=== PATIENT | male | born 1960 | race Caucasian/White ===

== ENCOUNTER 2016-12-31 12:10 | Emergency (ER) | payer OTHER ==
[~2016-12-31] VITALS: Ht 167.6 cm; Wt 46.3 kg
[~2016-12-31 12:10] MED LIST: ANAPROX DS550 MG PO; ASPIRIN ADULT L81 M1 PO; ASPIRIN325 MG PO; BACTRIM DS 8001 TA1 PO; BENTYL10 MG PO; CAPOTEN50 MG PO; CAPTOPRIL50 MG PO; CARDURA1 MG PO; CARDURA4 MG PO; CATAFLAM50 MG PO; CHOLESTEROL PILL; CIPROFLOXACIN500 MG PO; CLEOCIN150 MG PO; COMPLETE MULTI1 EAC1 PO; DAYPRO600 M1 PO; DICLOFENAC POTA50 MG PO; FISH OIL CONC1000 M1 PO; FLEXERIL5 MG PO; FLOMAX0.4 MG PO; GLYCERIN SUPPOS1 SUP RC; HYDR25T PO; HYDROCHLOROTHIA25 MG PO; HYDROCODONE BIT1 T11 PO; IBU800 M1 PO; K-Dur 20MEQ20 MEQ PO; KEFLEX500 MG PO; KLOR-CON M2020 MEQ PO; NEURONTIN400 MG PO; PREDNICOT20 MG PO; SEPTRA DS 800 M1 TAB PO; TOBRADEX 0.1%-0.5 ML OPH; TRAMADOL HCL50 MG PO; ULTRAM50 MG PO; VIBRAMYCIN100 MG PO; VICODIN 5/500 505 MG PO; VITAMIN C500 M4 PO; VITAMIN D31000 IU PO; ZYLOPRIM100 MG PO
[2016-12-31] MEDS ORDERED: CIPROFLOXACIN500 M4 PO (12:28)
[2016-12-31] MEDS ORDERED: CEPHALEXIN500 M1 PO (13:55)
[2016-12-31] MEDS ORDERED: NAPROSYN500 MG PO (14:02)
== END 2016-12-31 14:05 | disposition home or self-care (01) ==
LOC: ED 12:10
DX: S90.32XA Contusion of left foot, initial encounter (principal); L03.116 Cellulitis of left lower limb; Z90.49 Acquired absence of other specified parts of digestive tract; X58.XXXA Exposure to other specified factors, initial encounter; Y93.89 Activity, other specified; Y92.9 Unspecified place or not applicable; Y99.9 Unspecified external cause status

== ENCOUNTER → 2017-02-06 | Outpatient (CLI) | payer OTHER ==
[~2017-02-06] MED LIST changes: +CEPHALEXIN500 M1 PO; +CIPROFLOXACIN500 M4 PO; +NAPROSYN500 MG PO
== END ==
LOC: RAD 16:28
DX: R10.32 Left lower quadrant pain (principal); Z90.89 Acquired absence of other organs

== ENCOUNTER → 2017-05-19 | Outpatient (CLI) | payer OTHER | END | disposition home or self-care (01) | LOC: LAB 15:10 | DX: E87.6 Hypokalemia (principal); R10.30 Lower abdominal pain, unspecified; M79.609 Pain in unspecified limb ==

== ENCOUNTER → 2017-10-23 | Outpatient (CLI) | payer OTHER ==
[2017-10-23 13:04] LABS: ALBUMIN 3.8 gm/dl (3.1-4.5); BILIRUBIN, DIRECT 0.2 mg/dL (0.0-0.2); TOTAL PROTEIN 7.8 gm/dL (6.4-8.2)
[2017-10-24 08:11] LABS: ALPHA-1-ANTITRYPSIN, SERUM 143 mg/dL (90-200); HEPATITIS B SURFACE AG Negative (Negative); HEPATITIS C VIRUS ANTIBODY <0.1 s/co (0.0-0.9)
[2017-10-24 13:08] LABS: ANTI-SMOOTH MUSCLE ANTIBODY 4 Units (0-19)
[2017-10-24 15:06] LABS: EPSTEIN-BARR VCA IGG AB >600.0 U/mL (0.0-17.9)
== END | disposition home or self-care (01) ==
LOC: LAB 11:36
PROVIDERS: Nurse Practitioner Adult Health
DX: R97.20 Elevated prostate specific antigen [PSA] (principal); R74.0 Nonspecific elevation of levels of transaminase and lactic acid dehydrogenase [LDH]

== ENCOUNTER → 2017-10-26 | Outpatient (CLI) | payer OTHER | END | disposition home or self-care (01) | LOC: US 00:44 | DX: K76.0 Fatty (change of) liver, not elsewhere classified (principal); R74.0 Nonspecific elevation of levels of transaminase and lactic acid dehydrogenase [LDH] ==

== ENCOUNTER 2017-11-18 22:48 | Emergency (ER) | payer OTHER ==
[~2017-11-18] VITALS: Ht 170.1 cm; Wt 102.1 kg
[~2017-11-18 22:48] MED LIST changes: +FISH OIL + D31 EACH PO; -FISH OIL CONC1000 M1 PO
[2017-11-18] MEDS ORDERED: ZOCOR20 MG PO (23:21)
[2017-11-18] MEDS ORDERED: VITAMIN D32000 UNI1 PO (23:21)
[2017-11-18] MEDS ORDERED: COL-RITE100 M1 PO (23:23)
[2017-11-18] MEDS ORDERED: DOXYCYCLINE100 MG PO (23:24)
[2017-11-18] MEDS ORDERED: B12,B-12,B 12500 MC1 PO (23:26)
[2017-11-18] MEDS ORDERED: VITAMIN A8000 UNIT PO (23:27)
[2017-11-18] MEDS ORDERED: MILK THISTLE175 M1 PO (23:28)
[2017-11-18] MEDS ORDERED: HAIR, SKIN AND1 EACH PO (23:29)
[2017-11-18 23:36] LABS: MEAN CELL VOLUME 84.1 fl (80.0-94.0); MEAN CORPUSCULAR HGB 32.5 pg (27.0-31.0); MEAN PLATELET VOLUME 10.9 fl (9.6-12.3); PLATELET COUNT AUTOMATED 99 10*3/uL (130-400); RED BLOOD COUNT 5.23 10*6/uL (4.50-5.90); RED CELL DISTRI WIDTH 13.8 % (0-14.5); WHITE BLOOD COUNT 6.9 10*3/uL (4.8-10.8)
[2017-11-18 23:37] LABS: MEAN CORPUSCULAR HGB CONC 38.6 g/dl (33.0-37.0)
[2017-11-18 23:39] LABS: ALBUMIN 3.5 gm/dl (3.1-4.5); ALKALINE PHOSPHATASE 77 U/L (45-117); BUN 13 mg/dl (7-24); CHLORIDE 103 mmol/L (98-107); CREATININE 0.92 mg/dL (0.70-1.30); LIPASE 232 U/L (73-393); POTASSIUM 3.2 mmol/L (3.5-5.1); SGOT/AST 45 IU/L (3-35); SGPT/ALT 61 U/L (12-78); SODIUM 140 mmol/L (136-145); TOTAL PROTEIN 7.3 gm/dL (6.4-8.2)
[2017-11-18 23:55] LABS: BASOPHILS 1 % (0-1); PLATELET SUFFICIENCY LOW (NORMAL); TOTAL CELLS COUNTED 100 #CELLS
[2017-11-19 00:09] LABS: BILIRUBIN NEGATIVE (NEGATIVE); BLOOD 2+ (NEGATIVE); CLARITY CLEAR (CLEAR); COLOR YELLOW (YELLOW); GLUCOSE NEGATIVE (NEGATIVE); KETONE TRACE (NEGATIVE); LEUKO ESTERASE NEGATIVE (NEGATIVE); NITRITE NEGATIVE (NEGATIVE); PH 5.5 (5.0-9.0); UROBILINOGEN 0.2 E.U./dl (0.2-1.0)
[2017-11-19 00:10] LABS: EPITHELIAL CELLS 0-5
[2017-11-19 00:11] LABS: RBC 16-20 rbc/hpf (0-2); WBC 0-2 wbc/hpf (0-5)
[2017-11-19] MEDS ORDERED: ATARAX,VISTARIL50 MG PO (00:18)
== END 2017-11-19 01:33 | disposition home or self-care (01) ==
LOC: ED 22:48
PROVIDERS: Physician Assistant
DX: R10.11 Right upper quadrant pain (principal); R31.9 Hematuria, unspecified; F10.10 Alcohol abuse, uncomplicated; Z79.899 Other long term (current) drug therapy

== ENCOUNTER → 2018-01-25 | Outpatient (CLI) | payer OTHER ==
[~2018-01-25] MED LIST changes: +ATARAX,VISTARIL50 MG PO; +B12,B-12,B 12500 MC1 PO; +COL-RITE100 M1 PO; +DOXYCYCLINE100 MG PO; +HAIR, SKIN AND1 EACH PO; +MILK THISTLE175 M1 PO; +VITAMIN A8000 UNIT PO; +VITAMIN D32000 UNI1 PO; +ZOCOR20 MG PO
[2018-01-25 14:09] LABS: ACT PARTIAL THROMBO TIME 25.3 SECONDS (20.8-31.5); INTERNATIONAL NORM RATIO 1.1 (2.0-3.5)
== END | disposition home or self-care (01) ==
LOC: LAB 13:04
PROVIDERS: Anesthesiology Pain Medicine
DX: Z51.81 Encounter for therapeutic drug level monitoring (principal); Z79.899 Other long term (current) drug therapy

== ENCOUNTER → 2018-03-10 | Outpatient (CLI) | payer OTHER ==
[2018-03-10 09:54] LABS: BUN 14 mg/dl (7-24); CHLORIDE 106 mmol/L (98-107); CREATININE 1.02 mg/dL (0.70-1.30); POTASSIUM 3.1 mmol/L (3.5-5.1); SODIUM 140 mmol/L (136-145)
[2018-03-10 10:09] LABS: BASO % 0.5 % (0.0-1.0); EOS # 0.2 10*3/uL (0.0-0.4); EOS % 2.7 % (1.0-4.0); HEMATOCRIT 45.7 % (42.0-52.0); HEMOGLOBIN 16.9 g/dl (14.0-18.0); LYMPH # 1.5 10*3/uL (1.3-4.4); LYMPH % 26.3 % (27.0-41.0); MEAN CELL VOLUME 86.2 fl (80.0-94.0); MEAN CORPUSCULAR HGB 31.9 pg (27.0-31.0); MEAN PLATELET VOLUME 11.1 fl (9.6-12.3); MONO # 0.7 10*3/uL (0.1-1.0); MONO % 11.7 % (3.0-9.0); NEUT # 3.3 10*3/uL (2.3-7.9); NEUT % 58.6 % (47.0-73.0); PLATELET COUNT AUTOMATED 119 10*3/uL (130-400); RED CELL DISTRI WIDTH 14.2 % (0-14.5); WHITE BLOOD COUNT 5.6 10*3/uL (4.8-10.8)
== END | disposition home or self-care (01) ==
LOC: LAB 09:14
PROVIDERS: Orthopaedic Surgery
DX: S46.211A Strain of muscle, fascia and tendon of other parts of biceps, right arm, initial encounter (principal); R94.31 Abnormal electrocardiogram [ECG] [EKG]; X58.XXXA Exposure to other specified factors, initial encounter; Y93.89 Activity, other specified; Y92.89 Other specified places as the place of occurrence of the external cause; Y99.8 Other external cause status

== ENCOUNTER 2018-07-11 05:14 | Emergency (ER) | payer OTHER ==
[~2018-07-11] VITALS: Ht 170.1 cm; Wt 102.1 kg
--- NOTE | ~2018-07-11 | EKG ---
[place], [place] ELECTROCARDIOGRAM REPORT NAME: ESTELLA CENTENO UNIT #: [id number] ROOM: DOCTOR: EPIPHANY DRAFT REPORT BIRTHDATE: [birth year] [facility] Test Date: 2018-07-11 Test Time: 06:38:59 Pat Name: ESTELLA CENTENO Department: Room: Gender: Cafeteria Supervisor: AFIA : 1960 Requested By: ALLEN ADAMS Order Number: [id number] Reading MD: Ariel Cedeno MD Measurements Intervals [place] Rate: 65 P: 5 DE: 162 QRS: -4 QRSD: 88 T: 9 QT: 430 QTc: 448 Interpretive Statements Sinus rhythm Abnormal R-wave progression, early transition Electronically Signed On 07-12-2018 8:23:54 PDT by Ariel Cedeno MD CM:EKGRPT:ELECTROCARDIOGRAM REPORT [id number] ALLEN PINEDA DRAFT REPORT ALLEN ADAMS DO
[2018-07-11] MEDS ORDERED: DOXYCYCLINE100 M3 PO (05:36)
[2018-07-11] MEDS ORDERED: CYCLOBENZAPRINE10 MG PO (06:59)
== END 2018-07-11 07:03 | disposition home or self-care (01) ==
LOC: ED 05:14
DX: S29.012A Strain of muscle and tendon of back wall of thorax, initial encounter (principal); M79.601 Pain in right arm; M79.602 Pain in left arm; Z79.899 Other long term (current) drug therapy; Z79.2 Long term (current) use of antibiotics; X58.XXXA Exposure to other specified factors, initial encounter; Y93.89 Activity, other specified; Y92.89 Other specified places as the place of occurrence of the external cause; Y99.8 Other external cause status

== ENCOUNTER → 2018-07-13 | Outpatient (CLI) | payer OTHER ==
[~2018-07-13] MED LIST changes: +CYCLOBENZAPRINE10 MG PO; +DOXYCYCLINE100 M3 PO
== END | disposition home or self-care (01) ==
LOC: MRI 10:37
DX: M48.062 Spinal stenosis, lumbar region with neurogenic claudication (principal); M51.26 Other intervertebral disc displacement, lumbar region; M47.896 Other spondylosis, lumbar region; M54.16 Radiculopathy, lumbar region; M54.12 Radiculopathy, cervical region; K70.30 Alcoholic cirrhosis of liver without ascites

== ENCOUNTER → 2018-07-24 | Outpatient (CLI) | payer OTHER | END | disposition home or self-care (01) | LOC: RAD 10:19 | DX: M50.322 Other cervical disc degeneration at C5-C6 level (principal) ==

== ENCOUNTER → 2018-10-19 | Outpatient (CLI) | payer OTHER | END | disposition home or self-care (01) | LOC: LAB 14:54 | DX: N40.1 Benign prostatic hyperplasia with lower urinary tract symptoms (principal) ==

== ENCOUNTER 2019-11-11 16:50 | Emergency (ER) | payer OTHER ==
[~2019-11-11] VITALS: Ht 170.1 cm; Wt 110.2 kg
== END 2019-11-11 20:36 | disposition home or self-care (01) ==
LOC: ED 16:50
DX: M25.511 Pain in right shoulder (principal); Z79.899 Other long term (current) drug therapy; Z79.2 Long term (current) use of antibiotics; W01.0XXA Fall on same level from slipping, tripping and stumbling without subsequent striking against object, initial encounter; Y93.89 Activity, other specified; Y92.89 Other specified places as the place of occurrence of the external cause; Y99.8 Other external cause status

== ENCOUNTER 2020-09-06 16:52 | Emergency (ER) | payer OTHER ==
[~2020-09-06] VITALS: Ht 177.8 cm; Wt 104.3 kg
[2020-09-06] MEDS ORDERED: PREDNISONE10 MG PO (19:37)
[2020-09-06] MEDS ORDERED: ROBAXIN-750750 MG PO (19:37)
== END 2020-09-06 19:50 | disposition home or self-care (01) ==
LOC: ED 16:52
DX: M54.12 Radiculopathy, cervical region (principal); Z79.899 Other long term (current) drug therapy

== ENCOUNTER 2020-10-22 18:23 | Emergency (ER) | payer OTHER ==
[~2020-10-22] VITALS: Ht 167.6 cm; Wt 106.6 kg
[~2020-10-22 18:23] MED LIST changes: +PREDNISONE10 MG PO; +ROBAXIN-750750 MG PO
[2020-10-22] MEDS ORDERED: ROBAXIN-750750 MG PO (19:56)
[2020-10-22] MEDS ORDERED: PREDNISONE20 M1 PO (19:56)
== END 2020-10-22 21:23 | disposition home or self-care (01) ==
LOC: ED 18:23
DX: M54.12 Radiculopathy, cervical region (principal); M54.6 Pain in thoracic spine; Z79.899 Other long term (current) drug therapy

== ENCOUNTER 2021-05-12 23:55 | Emergency (ER) | payer OTHER ==
[~2021-05-12] VITALS: Ht 170.1 cm; Wt 106.6 kg
[~2021-05-12 23:55] MED LIST changes: +PREDNISONE20 M1 PO
[2021-05-13] MEDS ORDERED: NAPROXEN250 MG PO (01:23)
[2021-05-13] MEDS ORDERED: METHOCARBAMOL500 M1 PO (01:23)
== END 2021-05-13 01:35 | disposition home or self-care (01) ==
LOC: ED 23:55
DX: S39.012A Strain of muscle, fascia and tendon of lower back, initial encounter (principal); M25.511 Pain in right shoulder; Z79.899 Other long term (current) drug therapy; Y08.89XA Assault by other specified means, initial encounter; Y93.89 Activity, other specified; Y92.89 Other specified places as the place of occurrence of the external cause; Y99.8 Other external cause status

== ENCOUNTER → 2021-08-13 | Outpatient (CLI) | payer OTHER ==
[~2021-08-13] MED LIST changes: +METHOCARBAMOL500 M1 PO; +NAPROXEN250 MG PO
== END | disposition home or self-care (01) ==
LOC: RAD 16:09
PROVIDERS: ATTEND Orthopaedic Surgery
DX: M19.012 Primary osteoarthritis, left shoulder (principal); M25.512 Pain in left shoulder

== ENCOUNTER → 2021-09-16 | Outpatient (CLI) | payer OTHER ==
[2021-09-16 19:43] LABS: BASO % 0.4 % (0.0-1.0); EOS # 0.3 10*3/uL (0.0-0.4); EOS % 3.9 % (1.0-4.0); HEMATOCRIT 40.6 % (42.0-52.0); LYMPH # 1.2 10*3/uL (1.3-4.4); LYMPH % 17.6 % (27.0-41.0); MEAN CELL VOLUME 85.1 fl (80.0-94.0); MEAN CORPUSCULAR HGB 31.4 pg (27.0-31.0); MEAN CORPUSCULAR HGB CONC 36.9 g/dl (33.0-37.0); MEAN PLATELET VOLUME 11.1 fl (9.6-12.3); MONO # 0.5 10*3/uL (0.1-1.0); MONO % 7.9 % (3.0-9.0); NEUT # 4.7 10*3/uL (2.3-7.9); NEUT % 70.1 % (47.0-73.0); PLATELET COUNT AUTOMATED 79 10*3/uL (130-400); RED BLOOD COUNT 4.77 10*6/uL (4.50-5.90); WHITE BLOOD COUNT 6.7 10*3/uL (4.8-10.8)
[2021-09-16 20:15] LABS: ALBUMIN 3.4 gm/dl (3.1-4.5); ALKALINE PHOSPHATASE 83 U/L (45-117); BUN 15 mg/dl (7-24); CHLORIDE 104 mmol/L (98-107); CHOLESTEROL 107 mg/dL (<200); SGOT/AST 112 IU/L (3-35); SGPT/ALT 65 U/L (12-78); SODIUM 140 mmol/L (136-145); TOTAL PROTEIN 7.2 gm/dL (6.4-8.2); TRIGLYCERIDES 74 mg/dl (<150)
[2021-09-16 20:24] LABS: LDL CHOLESTEROL 46 mg/dL (9-159)
== END | disposition home or self-care (01) ==
LOC: LAB 17:58
PROVIDERS: ATTEND Nurse Practitioner Family
DX: E11.65 Type 2 diabetes mellitus with hyperglycemia (principal); E78.5 Hyperlipidemia, unspecified; E87.6 Hypokalemia

== ENCOUNTER 2021-11-03 18:55 | Emergency (ER) | payer OTHER ==
[~2021-11-03] VITALS: Ht 175.2 cm; Wt 93.4 kg
[2021-11-03 20:13] LABS: BASO % 0.5 % (0.0-1.0); EOS # 0.3 10*3/uL (0.0-0.4); EOS % 5.1 % (1.0-4.0); LYMPH % 16.3 % (27.0-41.0); MEAN CELL VOLUME 85.3 fl (80.0-94.0); MEAN CORPUSCULAR HGB 31.5 pg (27.0-31.0); MEAN CORPUSCULAR HGB CONC 36.9 g/dl (33.0-37.0); MEAN PLATELET VOLUME 10.5 fl (9.6-12.3); MONO # 0.5 10*3/uL (0.1-1.0); NEUT # 4.1 10*3/uL (2.3-7.9); NEUT % 68.8 % (47.0-73.0); PLATELET COUNT AUTOMATED 75 10*3/uL (130-400); RED BLOOD COUNT 4.57 10*6/uL (4.50-5.90); RED CELL DISTRI WIDTH 14.5 % (0-14.5); WHITE BLOOD COUNT 5.9 10*3/uL (4.8-10.8)
[2021-11-03 20:31] LABS: ALKALINE PHOSPHATASE 98 U/L (45-117); BUN 13 mg/dl (7-24); CHLORIDE 109 mmol/L (98-107); CREATININE 0.85 mg/dL (0.70-1.30); SGOT/AST 113 IU/L (3-35); SGPT/ALT 53 U/L (12-78); SODIUM 140 mmol/L (136-145); TOTAL PROTEIN 6.7 gm/dL (6.4-8.2)
[2021-11-03 23:04] LABS: BILIRUBIN Negative (Negative); BLOOD Negative (Negative); CLARITY Clear (Clear); COLOR Yellow (Yellow); GLUCOSE Negative (Negative); KETONE Negative (Negative); LEUKO ESTERASE Negative (Negative); NITRITE Negative (Negative); SPECIFIC GRAVITY <= 1.005 (1.001-1.030); UROBILINOGEN 0.2 E.U./dl (0.0-1.0)
[2021-11-03 23:29] LABS: BACTERIA 2+
== END 2021-11-03 23:44 | disposition left against medical advice (07) ==
LOC: ED 18:55
PROVIDERS: Student in an Organized Health Care Education/Training Program
DX: R53.83 Other fatigue (principal); E87.6 Hypokalemia; I10 Essential (primary) hypertension; E11.9 Type 2 diabetes mellitus without complications; Z79.899 Other long term (current) drug therapy; Z98.890 Other specified postprocedural states

== ENCOUNTER 2021-11-30 16:01 | Emergency (ER) | payer OTHER ==
[~2021-11-30] VITALS: Ht 170.1 cm; Wt 99.8 kg
== END 2021-11-30 17:02 | disposition home or self-care (01) ==
LOC: ED 16:01
DX: G56.02 Carpal tunnel syndrome, left upper limb (principal); Z79.899 Other long term (current) drug therapy; Z90.49 Acquired absence of other specified parts of digestive tract

== ENCOUNTER 2021-12-01 16:11 | Emergency (ER) | payer OTHER ==
[~2021-12-01] VITALS: Ht 170.1 cm; Wt 99.8 kg
== END 2021-12-01 19:00 | disposition home or self-care (01) ==
LOC: ED 16:11
DX: R04.0 Epistaxis (principal); Z79.899 Other long term (current) drug therapy

== ENCOUNTER 2021-12-16 11:25 | Emergency (ER) | payer OTHER ==
[~2021-12-16] VITALS: Ht 170.1 cm; Wt 108.9 kg
[~2021-12-16 11:25] MED LIST changes: +KLOR-CON M1010 ME1 PO; -KLOR-CON M2020 MEQ PO
[2021-12-16] MEDS ORDERED: GARLIC1000 M1 PO (11:50)
[2021-12-16] MEDS ORDERED: ELDERBERRY-VIT1 EACH PO (11:50)
[2021-12-16] MEDS ORDERED: OXYBUTYNIN10 MG PO (11:51)
[2021-12-16 13:12] LABS: BILIRUBIN Negative (Negative); BLOOD Negative (Negative); CLARITY Clear (Clear); COLOR Yellow (Yellow); GLUCOSE Negative (Negative); KETONE Negative (Negative); LEUKO ESTERASE Negative (Negative); NITRITE Negative (Negative); SPECIFIC GRAVITY 1.015 (1.001-1.030)
[2021-12-16 13:22] LABS: BASO % 0.6 % (0.0-1.0); EOS # 0.3 10*3/uL (0.0-0.4); EOS % 5.1 % (1.0-4.0); HEMATOCRIT 38.4 % (42.0-52.0); LYMPH # 0.9 10*3/uL (1.3-4.4); LYMPH % 14.3 % (27.0-41.0); MEAN CELL VOLUME 84.4 fl (80.0-94.0); MEAN CORPUSCULAR HGB 29.5 pg (27.0-31.0); MEAN CORPUSCULAR HGB CONC 34.9 g/dl (33.0-37.0); MEAN PLATELET VOLUME 10.7 fl (9.6-12.3); MONO # 0.5 10*3/uL (0.1-1.0); MONO % 8.7 % (3.0-9.0); NEUT # 4.4 10*3/uL (2.3-7.9); PLATELET COUNT AUTOMATED 64 10*3/uL (130-400); RED BLOOD COUNT 4.55 10*6/uL (4.50-5.90); RED CELL DISTRI WIDTH 14.6 % (0-14.5); WHITE BLOOD COUNT 6.2 10*3/uL (4.8-10.8)
[2021-12-16 13:36] LABS: INTERNATIONAL NORM RATIO 1.2 (2.0-3.5)
[2021-12-16 13:40] LABS: ALKALINE PHOSPHATASE 118 U/L (45-117); BUN 13 mg/dl (7-24); CHLORIDE 107 mmol/L (98-107); CREATININE 0.73 mg/dL (0.70-1.30); LIPASE 125 U/L (73-393); POTASSIUM 3.5 mmol/L (3.5-5.1); SGOT/AST 132 IU/L (3-35); SGPT/ALT 46 U/L (12-78); SODIUM 139 mmol/L (136-145); TOTAL PROTEIN 7.3 gm/dL (6.4-8.2)
== END 2021-12-16 17:09 | disposition home or self-care (01) ==
LOC: ED 11:25
PROVIDERS: Physician Assistant
DX: R60.0 Localized edema (principal); Z79.899 Other long term (current) drug therapy

== ENCOUNTER → 2021-12-30 | Outpatient (CLI) | payer OTHER ==
[~2021-12-30] MED LIST changes: +ELDERBERRY-VIT1 EACH PO; +GARLIC1000 M1 PO; +OXYBUTYNIN10 MG PO
== END | disposition home or self-care (01) ==
LOC: CT 11-19 09:00
PROVIDERS: ATTEND Nurse Practitioner Family
DX: I10 Essential (primary) hypertension (principal); R79.89 Other specified abnormal findings of blood chemistry; R93.89 Abnormal findings on diagnostic imaging of other specified body structures; E87.6 Hypokalemia; R59.0 Localized enlarged lymph nodes; Z86.39 Personal history of other endocrine, nutritional and metabolic disease

== ENCOUNTER → 2022-01-03 | Outpatient (CLI) | payer OTHER | END | disposition home or self-care (01) | LOC: LAB 12:47 | PROVIDERS: ATTEND Nurse Practitioner | DX: R68.89 Other general symptoms and signs (principal) ==

== ENCOUNTER → 2022-01-13 | Day surgery (SDC) | payer OTHER ==
[2022-01-10 11:33] VITALS: BP 144/86
[~2022-01-13] VITALS: Ht 170.1 cm; Wt 107.5 kg
[~2022-01-13] MED LIST changes: +ALEVE220 M1 PO; +HYDROCHLOROTHIA25 M1 PO; +PERCOCET 5-3251 EACH PO
[2022-01-13 08:15] VITALS: BP 141/76
[2022-01-13 09:43] VITALS: BP 136/80
[2022-01-13 09:58] VITALS: BP 132/73
[2022-01-13 10:10] VITALS: BP 129/77
[2022-01-13 10:30] VITALS: BP 136/86
[2022-01-13 10:43] VITALS: BP 134/63
== END | disposition home or self-care (01) ==
LOC: SDC 01-10 11:00
PROVIDERS: ATTEND Surgery
DX: R59.0 Localized enlarged lymph nodes (principal); I10 Essential (primary) hypertension; G62.9 Polyneuropathy, unspecified; K74.60 Unspecified cirrhosis of liver; R53.83 Other fatigue; E11.40 Type 2 diabetes mellitus with diabetic neuropathy, unspecified; Z79.899 Other long term (current) drug therapy

== ENCOUNTER → 2022-02-01 | Outpatient (CLI) | payer OTHER ==
[2022-02-01 10:27] LABS: BASO # 0.1 10*3/uL (0.0-0.1); BASO % 0.8 % (0.0-1.0); EOS # 0.4 10*3/uL (0.0-0.4); EOS % 5.5 % (1.0-4.0); HEMATOCRIT 40.2 % (42.0-52.0); LYMPH # 1.2 10*3/uL (1.3-4.4); MEAN CELL VOLUME 83.4 fl (80.0-94.0); MEAN CORPUSCULAR HGB 28.8 pg (27.0-31.0); MEAN CORPUSCULAR HGB CONC 34.6 g/dl (33.0-37.0); MONO # 0.7 10*3/uL (0.1-1.0); MONO % 9.3 % (3.0-9.0); NEUT # 5.4 10*3/uL (2.3-7.9); NEUT % 69.1 % (47.0-73.0); PLATELET COUNT AUTOMATED 88 10*3/uL (130-400); RED BLOOD COUNT 4.82 10*6/uL (4.50-5.90); RED CELL DISTRI WIDTH 15.4 % (0-14.5); WHITE BLOOD COUNT 7.8 10*3/uL (4.8-10.8)
[2022-02-01 10:38] LABS: ACT PARTIAL THROMBO TIME 27.8 SECONDS (20.0-32.1); INTERNATIONAL NORM RATIO 1.2 (2.0-3.5)
[2022-02-01 10:42] LABS: ALKALINE PHOSPHATASE 161 U/L (45-117); BUN 16 mg/dl (7-24); CHLORIDE 102 mmol/L (98-107); CREATININE 1.04 mg/dL (0.70-1.30); POTASSIUM 4.2 mmol/L (3.5-5.1); SGOT/AST 209 IU/L (3-35); SGPT/ALT 64 U/L (12-78); SODIUM 133 mmol/L (136-145); TOTAL PROTEIN 8.8 gm/dL (6.4-8.2)
== END ==
LOC: EDSTATUS 10:30
PROVIDERS: ATTEND Nurse Practitioner
DX: R16.1 Splenomegaly, not elsewhere classified (principal); R18.8 Other ascites; I85.00 Esophageal varices without bleeding; K31.84 Gastroparesis; R74.01 Elevation of levels of liver transaminase levels; R10.9 Unspecified abdominal pain; Z68.38 Body mass index [BMI] 38.0-38.9, adult

== ENCOUNTER → 2022-02-03 | Outpatient (CLI) | payer OTHER | END | disposition home or self-care (01) | LOC: CT 08:00 | PROVIDERS: ATTEND Nurse Practitioner Family | DX: K76.89 Other specified diseases of liver (principal); R91.8 Other nonspecific abnormal finding of lung field; N20.0 Calculus of kidney; K76.6 Portal hypertension; C79.9 Secondary malignant neoplasm of unspecified site; K74.60 Unspecified cirrhosis of liver ==

== ENCOUNTER 2022-03-23 11:42 | Inpatient (IN) | payer OTHER ==
[~2022-03-23] VITALS: Ht 170.2 cm; Wt 107.2 kg
[2022-03-23 12:36] LABS: BASO % 0.7 % (0.0-1.0); EOS # 0.2 10*3/uL (0.0-0.4); EOS % 3.3 % (1.0-4.0); LYMPH # 0.8 10*3/uL (1.3-4.4); MEAN CELL VOLUME 88.7 fl (80.0-94.0); MEAN CORPUSCULAR HGB 30.3 pg (27.0-31.0); MEAN CORPUSCULAR HGB CONC 34.2 g/dl (33.0-37.0); MEAN PLATELET VOLUME 11.5 fl (9.6-12.3); MONO # 0.6 10*3/uL (0.1-1.0); MONO % 10.5 % (3.0-9.0); NEUT # 4.1 10*3/uL (2.3-7.9); NEUT % 71.2 % (47.0-73.0); PLATELET COUNT AUTOMATED 75 10*3/uL (130-400); RED BLOOD COUNT 4.06 10*6/uL (4.50-5.90); WHITE BLOOD COUNT 5.8 10*3/uL (4.8-10.8)
[2022-03-23 12:51] LABS: ACT PARTIAL THROMBO TIME 24.9 SECONDS (20.0-32.1); INTERNATIONAL NORM RATIO 1.4 (2.0-3.5)
[2022-03-23 12:57] LABS: ALKALINE PHOSPHATASE 223 U/L (45-117); BUN 17 mg/dl (7-24); CHLORIDE 101 mmol/L (98-107); CREATININE 0.95 mg/dL (0.70-1.30); POTASSIUM 3.8 mmol/L (3.5-5.1); SGOT/AST 401 IU/L (3-35); SGPT/ALT 53 U/L (12-78); SODIUM 130 mmol/L (136-145); TOTAL PROTEIN 7.9 gm/dL (6.4-8.2)
[2022-03-23 14:35] VITALS: BP 102/64
[2022-03-23 14:50] VITALS: BP 115/71
[2022-03-23] MEDS ORDERED: MIRTAZAPINE15 M2 PO (15:11)
[2022-03-23] MEDS ORDERED: OXYCODONE HCL5 MG PO (15:11)
[2022-03-23] MEDS ORDERED: XIFAXAN550 MG PO (15:13)
[2022-03-23] MEDS ORDERED: LACTULOSE10 GM/151 PO (15:14)
[2022-03-23] MEDS ORDERED: METAMUCIL SUGA283 GM PO (15:16)
[2022-03-23 20:00] VITALS: BP 129/69
[2022-03-23 20:34] LABS: BASO % 0.7 % (0.0-1.0); EOS # 0.2 10*3/uL (0.0-0.4); EOS % 3.3 % (1.0-4.0); HEMATOCRIT 36.6 % (42.0-52.0); LYMPH # 0.9 10*3/uL (1.3-4.4); LYMPH % 14.2 % (27.0-41.0); MEAN CELL VOLUME 88.8 fl (80.0-94.0); MEAN CORPUSCULAR HGB 30.1 pg (27.0-31.0); MEAN CORPUSCULAR HGB CONC 33.9 g/dl (33.0-37.0); MEAN PLATELET VOLUME 10.6 fl (9.6-12.3); MONO # 0.6 10*3/uL (0.1-1.0); MONO % 10.3 % (3.0-9.0); NEUT # 4.3 10*3/uL (2.3-7.9); PLATELET COUNT AUTOMATED 82 10*3/uL (130-400); RED BLOOD COUNT 4.12 10*6/uL (4.50-5.90); RED CELL DISTRI WIDTH 18.9 % (0-14.5)
[2022-03-23 20:49] LABS: ALKALINE PHOSPHATASE 223 U/L (45-117); BUN 17 mg/dl (7-24); CHLORIDE 100 mmol/L (98-107); CREATININE 1.08 mg/dL (0.70-1.30); POTASSIUM 3.6 mmol/L (3.5-5.1); SGOT/AST 408 IU/L (3-35); SGPT/ALT 52 U/L (12-78); SODIUM 134 mmol/L (136-145); TOTAL PROTEIN 8.1 gm/dL (6.4-8.2)
[2022-03-24] VITALS: BP 126/58
[2022-03-24 02:58] LABS: BILIRUBIN 2+ (Negative); BLOOD Negative (Negative); CLARITY Clear (Clear); COLOR Dark Yellow (Yellow); GLUCOSE Negative (Negative); KETONE Negative (Negative); LEUKO ESTERASE Negative (Negative); NITRITE Negative (Negative); PH 5.5 (4.5-8.0)
[2022-03-24 03:08] LABS: BACTERIA TRACE; WBC 0-2 wbc/hpf (0-5)
[2022-03-24 05:24] LABS: ALKALINE PHOSPHATASE 222 U/L (45-117); BUN 17 mg/dl (7-24); CHLORIDE 102 mmol/L (98-107); CREATININE 0.92 mg/dL (0.70-1.30); POTASSIUM 3.7 mmol/L (3.5-5.1); SGOT/AST 382 IU/L (3-35); SGPT/ALT 51 U/L (12-78); SODIUM 132 mmol/L (136-145); TOTAL PROTEIN 7.9 gm/dL (6.4-8.2)
[2022-03-24 06:22] LABS: BASO # 0.1 10*3/uL (0.0-0.1); BASO % 0.9 % (0.0-1.0); EOS # 0.3 10*3/uL (0.0-0.4); HEMATOCRIT 35.2 % (42.0-52.0); LYMPH % 14.6 % (27.0-41.0); MEAN CELL VOLUME 88.7 fl (80.0-94.0); MEAN CORPUSCULAR HGB 30.2 pg (27.0-31.0); MEAN CORPUSCULAR HGB CONC 34.1 g/dl (33.0-37.0); MEAN PLATELET VOLUME 10.7 fl (9.6-12.3); MONO # 0.9 10*3/uL (0.1-1.0); MONO % 12.4 % (3.0-9.0); NEUT # 4.6 10*3/uL (2.3-7.9); NEUT % 67.2 % (47.0-73.0); PLATELET COUNT AUTOMATED 85 10*3/uL (130-400); RED BLOOD COUNT 3.97 10*6/uL (4.50-5.90); WHITE BLOOD COUNT 6.8 10*3/uL (4.8-10.8)
[2022-03-24 08:00] VITALS: BP 123/61
[2022-03-24 11:23] LABS: VITAMIN D, 25-HYDROXY 42.7 ng/mL (30-100)
[2022-03-24 12:00] VITALS: BP 124/70
[2022-03-24 16:00] VITALS: BP 145/78
[2022-03-24 20:00] VITALS: BP 116/69
[2022-03-25] VITALS: BP 116/63
[2022-03-25 07:07] LABS: BASO # 0.1 10*3/uL (0.0-0.1); BASO % 0.9 % (0.0-1.0); EOS # 0.3 10*3/uL (0.0-0.4); EOS % 5.5 % (1.0-4.0); LYMPH % 18.5 % (27.0-41.0); MEAN CELL VOLUME 87.2 fl (80.0-94.0); MEAN CORPUSCULAR HGB CONC 34.4 g/dl (33.0-37.0); MEAN PLATELET VOLUME 10.8 fl (9.6-12.3); MONO # 0.8 10*3/uL (0.1-1.0); MONO % 13.4 % (3.0-9.0); NEUT # 3.4 10*3/uL (2.3-7.9); PLATELET COUNT AUTOMATED 72 10*3/uL (130-400); RED CELL DISTRI WIDTH 19.1 % (0-14.5); WHITE BLOOD COUNT 5.6 10*3/uL (4.8-10.8)
[2022-03-25 07:28] LABS: BUN 15 mg/dl (7-24); CHLORIDE 101 mmol/L (98-107); CREATININE 0.72 mg/dL (0.70-1.30); POTASSIUM 3.5 mmol/L (3.5-5.1); SODIUM 134 mmol/L (136-145)
[2022-03-25 07:34] LABS: INTERNATIONAL NORM RATIO 1.5 (2.0-3.5)
[2022-03-25 08:00] VITALS: BP 124/67
[2022-03-25 12:00] VITALS: BP 98/57
[2022-03-25 16:00] VITALS: BP 109/61
[2022-03-25 20:00] VITALS: BP 114/56
[2022-03-26] VITALS: BP 114/62
[2022-03-26 06:28] LABS: BASO # 0.1 10*3/uL (0.0-0.1); EOS # 0.3 10*3/uL (0.0-0.4); EOS % 3.7 % (1.0-4.0); HEMATOCRIT 34.8 % (42.0-52.0); LYMPH % 14.1 % (27.0-41.0); MEAN CELL VOLUME 87.7 fl (80.0-94.0); MEAN CORPUSCULAR HGB 30.2 pg (27.0-31.0); MEAN CORPUSCULAR HGB CONC 34.5 g/dl (33.0-37.0); MEAN PLATELET VOLUME 11.1 fl (9.6-12.3); MONO # 0.8 10*3/uL (0.1-1.0); MONO % 12.1 % (3.0-9.0); NEUT # 4.8 10*3/uL (2.3-7.9); NEUT % 68.2 % (47.0-73.0); PLATELET COUNT AUTOMATED 80 10*3/uL (130-400); RED BLOOD COUNT 3.97 10*6/uL (4.50-5.90); RED CELL DISTRI WIDTH 19.5 % (0-14.5)
[2022-03-26 06:30] LABS: ALKALINE PHOSPHATASE 207 U/L (45-117); BUN 15 mg/dl (7-24); CHLORIDE 100 mmol/L (98-107); CREATININE 0.78 mg/dL (0.70-1.30); SGOT/AST 387 IU/L (3-35); SGPT/ALT 50 U/L (12-78); SODIUM 133 mmol/L (136-145); TOTAL PROTEIN 7.6 gm/dL (6.4-8.2)
[2022-03-26 08:00] VITALS: BP 120/70
[2022-03-26 12:00] VITALS: BP 98/53
[2022-03-26 16:00] VITALS: BP 130/50
[2022-03-26 20:00] VITALS: BP 128/75
[2022-03-27] VITALS: BP 114/62
[2022-03-27 06:21] LABS: ALKALINE PHOSPHATASE 209 U/L (45-117); BUN 17 mg/dl (7-24); CHLORIDE 100 mmol/L (98-107); CREATININE 0.74 mg/dL (0.70-1.30); SGOT/AST 410 IU/L (3-35); SGPT/ALT 46 U/L (12-78); SODIUM 133 mmol/L (136-145); TOTAL PROTEIN 7.6 gm/dL (6.4-8.2)
[2022-03-27 06:22] LABS: BASO # 0.1 10*3/uL (0.0-0.1); EOS # 0.3 10*3/uL (0.0-0.4); EOS % 4.2 % (1.0-4.0); HEMATOCRIT 34.2 % (42.0-52.0); LYMPH % 16.1 % (27.0-41.0); MEAN CELL VOLUME 89.5 fl (80.0-94.0); MEAN CORPUSCULAR HGB 30.9 pg (27.0-31.0); MEAN CORPUSCULAR HGB CONC 34.5 g/dl (33.0-37.0); MEAN PLATELET VOLUME 11.2 fl (9.6-12.3); MONO # 0.8 10*3/uL (0.1-1.0); MONO % 13.1 % (3.0-9.0); NEUT # 3.8 10*3/uL (2.3-7.9); NEUT % 64.6 % (47.0-73.0); PLATELET COUNT AUTOMATED 73 10*3/uL (130-400); RED BLOOD COUNT 3.82 10*6/uL (4.50-5.90); RED CELL DISTRI WIDTH 19.5 % (0-14.5); WHITE BLOOD COUNT 5.9 10*3/uL (4.8-10.8)
[2022-03-27 08:00] VITALS: BP 124/63
[2022-03-27 12:00] VITALS: BP 121/65
[2022-03-27 16:00] VITALS: BP 126/67
[2022-03-27 20:00] VITALS: BP 115/54
[2022-03-28] VITALS: BP 113/54
[2022-03-28 07:10] LABS: BASO # 0.1 10*3/uL (0.0-0.1); BASO % 0.8 % (0.0-1.0); EOS # 0.3 10*3/uL (0.0-0.4); EOS % 4.7 % (1.0-4.0); HEMATOCRIT 33.9 % (42.0-52.0); LYMPH # 1.1 10*3/uL (1.3-4.4); LYMPH % 17.1 % (27.0-41.0); MEAN CELL VOLUME 89.2 fl (80.0-94.0); MEAN CORPUSCULAR HGB 30.3 pg (27.0-31.0); MEAN CORPUSCULAR HGB CONC 33.9 g/dl (33.0-37.0); MEAN PLATELET VOLUME 10.4 fl (9.6-12.3); MONO # 0.8 10*3/uL (0.1-1.0); MONO % 12.7 % (3.0-9.0); NEUT # 4.2 10*3/uL (2.3-7.9); NEUT % 63.8 % (47.0-73.0); PLATELET COUNT AUTOMATED 77 10*3/uL (130-400); RED CELL DISTRI WIDTH 19.4 % (0-14.5); WHITE BLOOD COUNT 6.6 10*3/uL (4.8-10.8)
[2022-03-28 07:19] LABS: BUN 16 mg/dl (7-24); CHLORIDE 99 mmol/L (98-107); CREATININE 0.75 mg/dL (0.70-1.30); POTASSIUM 4.1 mmol/L (3.5-5.1); SODIUM 130 mmol/L (136-145)
[2022-03-28 08:00] VITALS: BP 100/84
[2022-03-28 12:00] VITALS: BP 119/79
[2022-03-28] MEDS ORDERED: ENOXAPARIN120 MG/0.2 SC (13:01)
[2022-03-28 16:00] VITALS: BP 120/66
[2022-03-28 20:00] VITALS: BP 107/59
[2022-03-29] VITALS: BP 114/52
[2022-03-29 04:36] LABS: BASO # 0.1 10*3/uL (0.0-0.1); BASO % 0.9 % (0.0-1.0); EOS # 0.3 10*3/uL (0.0-0.4); EOS % 4.5 % (1.0-4.0); HEMATOCRIT 33.8 % (42.0-52.0); LYMPH # 1.1 10*3/uL (1.3-4.4); LYMPH % 16.5 % (27.0-41.0); MEAN CELL VOLUME 89.9 fl (80.0-94.0); MEAN CORPUSCULAR HGB 31.1 pg (27.0-31.0); MEAN CORPUSCULAR HGB CONC 34.6 g/dl (33.0-37.0); MONO % 14.6 % (3.0-9.0); NEUT # 4.2 10*3/uL (2.3-7.9); NEUT % 62.7 % (47.0-73.0); PLATELET COUNT AUTOMATED 79 10*3/uL (130-400); RED BLOOD COUNT 3.76 10*6/uL (4.50-5.90); RED CELL DISTRI WIDTH 19.3 % (0-14.5); WHITE BLOOD COUNT 6.7 10*3/uL (4.8-10.8)
[2022-03-29 04:49] LABS: BUN 15 mg/dl (7-24); CHLORIDE 99 mmol/L (98-107); CREATININE 0.71 mg/dL (0.70-1.30); POTASSIUM 4.3 mmol/L (3.5-5.1); SODIUM 131 mmol/L (136-145)
[2022-03-29 04:50] LABS: IRON 56 ug/dL (65-175); TOTAL IRON BINDING CAPACITY 183 ug/dl (250-450)
[2022-03-29 04:52] LABS: INTERNATIONAL NORM RATIO 1.4 (2.0-3.5)
[2022-03-29 08:00] VITALS: BP 105/60
[2022-03-29] MEDS ORDERED: FUROSEMIDE20 M1 PO (10:50)
[2022-03-29] MEDS ORDERED: LISINOPRIL5 MG PO (10:50)
[2022-03-29] MEDS ORDERED: SPIRONOLACTONE100 MG PO (10:50)
[2022-03-29] MEDS ORDERED: XARE15TA PO (10:50)
== END 2022-03-29 12:00 | disposition home health service (06) | DRG 190 ==
LOC: ED 11:42 → 4E 13:33 → EDHOLD 13:33 → 4E 14:05
PROVIDERS: Emergency Medicine; Internal Medicine; Registered Nurse; Student in an Organized Health Care Education/Training Program; ADMIT Internal Medicine; ATTEND Internal Medicine
DX: I21.4 Non-ST elevation (NSTEMI) myocardial infarction (principal); I26.99 Other pulmonary embolism without acute cor pulmonale; C22.9 Malignant neoplasm of liver, not specified as primary or secondary; E87.1 Hypo-osmolality and hyponatremia; E87.2 Acidosis; E44.0 Moderate protein-calorie malnutrition; I10 Essential (primary) hypertension; D69.6 Thrombocytopenia, unspecified; M54.50 Low back pain, unspecified; G89.29 Other chronic pain; D64.9 Anemia, unspecified; D68.59 Other primary thrombophilia; I82.412 Acute embolism and thrombosis of left femoral vein; I82.452 Acute embolism and thrombosis of left peroneal vein; I82.432 Acute embolism and thrombosis of left popliteal vein; I82.4Z2 Acute embolism and thrombosis of unspecified deep veins of left distal lower extremity; Z90.49 Acquired absence of other specified parts of digestive tract; Z82.49 Family history of ischemic heart disease and other diseases of the circulatory system; Z85.05 Personal history of malignant neoplasm of liver; I25.2 Old myocardial infarction; Z80.6 Family history of leukemia; Z68.37 Body mass index [BMI] 37.0-37.9, adult

== ENCOUNTER 2022-04-07 17:41 | Emergency (ER) | payer OTHER ==
[~2022-04-07 17:41] MED LIST changes: +ENOXAPARIN120 MG/0.2 SC; +FUROSEMIDE20 M1 PO; +LACTULOSE10 GM/151 PO; +LISINOPRIL5 MG PO; +METAMUCIL SUGA283 GM PO; +MIRTAZAPINE15 M2 PO; +OXYCODONE HCL5 MG PO; +SPIRONOLACTONE100 MG PO; +XARE15TA PO; +XIFAXAN550 MG PO
== END 2022-04-07 18:10 | disposition left against medical advice (07) ==
LOC: ED 17:41
DX: Z53.21 Procedure and treatment not carried out due to patient leaving prior to being seen by health care provider (principal)

== ENCOUNTER 2022-04-08 10:37 | Emergency (ER) | payer OTHER ==
[~2022-04-08] VITALS: Ht 170.1 cm; Wt 107.0 kg
[2022-04-08 11:23] LABS: BASO # 0.1 10*3/uL (0.0-0.1); BASO % 0.8 % (0.0-1.0); EOS # 0.2 10*3/uL (0.0-0.4); EOS % 2.5 % (1.0-4.0); HEMATOCRIT 34.3 % (42.0-52.0); LYMPH # 0.9 10*3/uL (1.3-4.4); MEAN CELL VOLUME 90.5 fl (80.0-94.0); MEAN CORPUSCULAR HGB 31.4 pg (27.0-31.0); MEAN CORPUSCULAR HGB CONC 34.7 g/dl (33.0-37.0); MEAN PLATELET VOLUME 9.7 fl (9.6-12.3); MONO # 0.8 10*3/uL (0.1-1.0); NEUT # 5.3 10*3/uL (2.3-7.9); NEUT % 72.6 % (47.0-73.0); PLATELET COUNT AUTOMATED 107 10*3/uL (130-400); RED BLOOD COUNT 3.79 10*6/uL (4.50-5.90); RED CELL DISTRI WIDTH 19.1 % (0-14.5); WHITE BLOOD COUNT 7.3 10*3/uL (4.8-10.8)
[2022-04-08 11:33] LABS: ACT PARTIAL THROMBO TIME 41.8 SECONDS (20.0-32.1)
[2022-04-08 11:38] LABS: ALKALINE PHOSPHATASE 237 U/L (45-117); BUN 24 mg/dl (7-24); CHLORIDE 94 mmol/L (98-107); CREATININE 0.87 mg/dL (0.70-1.30); POTASSIUM 4.9 mmol/L (3.5-5.1); SGOT/AST 500 IU/L (3-35); SGPT/ALT 71 U/L (12-78); SODIUM 123 mmol/L (136-145); TOTAL PROTEIN 8.6 gm/dL (6.4-8.2)
== END 2022-04-08 14:09 | disposition home or self-care (01) ==
LOC: ED 10:37
PROVIDERS: Family Medicine
DX: R18.8 Other ascites (principal); Z79.899 Other long term (current) drug therapy; Z90.49 Acquired absence of other specified parts of digestive tract; Z90.89 Acquired absence of other organs; Z98.890 Other specified postprocedural states

== ENCOUNTER 2022-04-10 09:45 | Inpatient (IN) | payer OTHER ==
[~2022-04-10] VITALS: Ht 170.1 cm; Wt 107.2 kg
[2022-04-10 10:01] VITALS: BP 101/53
[2022-04-10 10:40] LABS: BASO # 0.1 10*3/uL (0.0-0.1); BASO % 0.7 % (0.0-1.0); EOS # 0.2 10*3/uL (0.0-0.4); EOS % 2.1 % (1.0-4.0); HEMATOCRIT 31.8 % (42.0-52.0); LYMPH # 0.8 10*3/uL (1.3-4.4); LYMPH % 9.8 % (27.0-41.0); MEAN CELL VOLUME 90.9 fl (80.0-94.0); MEAN CORPUSCULAR HGB 31.7 pg (27.0-31.0); MEAN CORPUSCULAR HGB CONC 34.9 g/dl (33.0-37.0); MEAN PLATELET VOLUME 9.9 fl (9.6-12.3); MONO # 0.9 10*3/uL (0.1-1.0); MONO % 11.2 % (3.0-9.0); NEUT # 6.1 10*3/uL (2.3-7.9); NEUT % 75.1 % (47.0-73.0); PLATELET COUNT AUTOMATED 93 10*3/uL (130-400); RED CELL DISTRI WIDTH 18.7 % (0-14.5); WHITE BLOOD COUNT 8.1 10*3/uL (4.8-10.8)
[2022-04-10 10:57] LABS: ALKALINE PHOSPHATASE 240 U/L (45-117); BUN 27 mg/dl (7-24); CHLORIDE 93 mmol/L (98-107); CREATININE 1.06 mg/dL (0.70-1.30); LIPASE 380 U/L (73-393); POTASSIUM 4.9 mmol/L (3.5-5.1); SGOT/AST 441 IU/L (3-35); SGPT/ALT 71 U/L (12-78); SODIUM 123 mmol/L (136-145); TOTAL PROTEIN 8.1 gm/dL (6.4-8.2)
[2022-04-10 14:10] VITALS: BP 113/60
[2022-04-10 16:00] VITALS: BP 94/50
[2022-04-10 20:00] VITALS: BP 103/56
[2022-04-11] VITALS: BP 96/57
[2022-04-11 05:55] LABS: BUN 27 mg/dl (7-24); CHLORIDE 93 mmol/L (98-107); CREATININE 0.87 mg/dL (0.70-1.30); POTASSIUM 4.9 mmol/L (3.5-5.1); SGOT/AST 426 IU/L (3-35); SGPT/ALT 70 U/L (12-78); SODIUM 123 mmol/L (136-145)
[2022-04-11 05:56] LABS: ALKALINE PHOSPHATASE 236 U/L (45-117)
[2022-04-11 06:28] LABS: ACT PARTIAL THROMBO TIME 31.9 SECONDS (20.0-32.1); INTERNATIONAL NORM RATIO 1.4 (2.0-3.5)
[2022-04-11 07:11] LABS: BASO # 0.1 10*3/uL (0.0-0.1); BASO % 1.1 % (0.0-1.0); EOS # 0.3 10*3/uL (0.0-0.4); EOS % 3.4 % (1.0-4.0); HEMATOCRIT 32.8 % (42.0-52.0); LYMPH % 11.5 % (27.0-41.0); MEAN CELL VOLUME 91.1 fl (80.0-94.0); MEAN CORPUSCULAR HGB 31.9 pg (27.0-31.0); MEAN CORPUSCULAR HGB CONC 35.1 g/dl (33.0-37.0); MEAN PLATELET VOLUME 11.2 fl (9.6-12.3); MONO # 1.1 10*3/uL (0.1-1.0); MONO % 12.6 % (3.0-9.0); NEUT % 70.1 % (47.0-73.0); PLATELET COUNT AUTOMATED 100 10*3/uL (130-400); RED CELL DISTRI WIDTH 18.5 % (0-14.5); WHITE BLOOD COUNT 8.6 10*3/uL (4.8-10.8)
[2022-04-11 08:00] VITALS: BP 110/52
[2022-04-11 11:32] VITALS: BP 103/55
[2022-04-11 16:00] VITALS: BP 90/54
[2022-04-11 20:00] VITALS: BP 110/55
[2022-04-12] VITALS: BP 111/58
[2022-04-12 06:25] LABS: BUN 26 mg/dl (7-24); CHLORIDE 91 mmol/L (98-107); POTASSIUM 4.8 mmol/L (3.5-5.1)
[2022-04-12 06:29] LABS: SODIUM 119 mmol/L (136-145)
[2022-04-12 08:00] VITALS: BP 119/53
[2022-04-12 12:00] VITALS: BP 113/54
[2022-04-12 15:46] LABS: BUN 24 mg/dl (7-24); CHLORIDE 91 mmol/L (98-107); CREATININE 1.02 mg/dL (0.70-1.30); POTASSIUM 4.6 mmol/L (3.5-5.1); SODIUM 121 mmol/L (136-145)
[2022-04-12 16:00] VITALS: BP 104/56
[2022-04-12 20:00] VITALS: BP 102/55
[2022-04-12 20:15] LABS: BILIRUBIN 1+ (Negative); BLOOD Negative (Negative); CLARITY Clear (Clear); COLOR Dark Yellow (Yellow); GLUCOSE Negative (Negative); KETONE Negative (Negative); LEUKO ESTERASE Negative (Negative); NITRITE Negative (Negative); PH 6.5 (4.5-8.0); SPECIFIC GRAVITY 1.015 (1.001-1.030)
[2022-04-12 20:36] LABS: URINE CREATININE RANDOM 34.9 mg/dL
[2022-04-12 20:52] LABS: BACTERIA TRACE; RBC 0-2 rbc/hpf (0-2); WBC 0-2 wbc/hpf (0-5)
[2022-04-12 23:23] LABS: BUN 27 mg/dl (7-24); CHLORIDE 91 mmol/L (98-107); SODIUM 120 mmol/L (136-145)
[2022-04-13] VITALS: BP 121/59
[2022-04-13 06:38] LABS: BUN 28 mg/dl (7-24); CHLORIDE 91 mmol/L (98-107); CREATININE 0.97 mg/dL (0.70-1.30); SODIUM 121 mmol/L (136-145)
[2022-04-13 08:00] VITALS: BP 104/59
[2022-04-13 12:00] VITALS: BP 119/45
[2022-04-13 16:00] VITALS: BP 97/55
[2022-04-13 16:55] LABS: BUN 26 mg/dl (7-24); CHLORIDE 91 mmol/L (98-107); CREATININE 0.99 mg/dL (0.70-1.30); POTASSIUM 4.7 mmol/L (3.5-5.1); SODIUM 121 mmol/L (136-145)
[2022-04-13 20:00] VITALS: BP 109/56
[2022-04-14] VITALS: BP 117/59
[2022-04-14 06:26] LABS: BUN 27 mg/dl (7-24); CHLORIDE 90 mmol/L (98-107); POTASSIUM 4.5 mmol/L (3.5-5.1); SODIUM 122 mmol/L (136-145)
[2022-04-14 08:00] VITALS: BP 90/47
[2022-04-14 12:00] VITALS: BP 113/55
[2022-04-14 12:21] LABS: BUN 27 mg/dl (7-24); CHLORIDE 91 mmol/L (98-107); CREATININE 1.02 mg/dL (0.70-1.30); POTASSIUM 4.5 mmol/L (3.5-5.1); SODIUM 122 mmol/L (136-145)
[2022-04-14 16:00] VITALS: BP 103/59
[2022-04-14 17:18] LABS: BUN 29 mg/dl (7-24); CHLORIDE 91 mmol/L (98-107); CREATININE 1.06 mg/dL (0.70-1.30); POTASSIUM 4.7 mmol/L (3.5-5.1); SODIUM 122 mmol/L (136-145)
[2022-04-14 20:00] VITALS: BP 106/56
[2022-04-15] VITALS: BP 113/62; BP 157/64
[2022-04-15 06:24] LABS: BUN 30 mg/dl (7-24); CHLORIDE 90 mmol/L (98-107); CREATININE 1.04 mg/dL (0.70-1.30); POTASSIUM 4.6 mmol/L (3.5-5.1)
[2022-04-15 06:27] LABS: BASO # 0.1 10*3/uL (0.0-0.1); BASO % 0.7 % (0.0-1.0); EOS # 0.3 10*3/uL (0.0-0.4); EOS % 2.8 % (1.0-4.0); HEMATOCRIT 31.3 % (42.0-52.0); LYMPH # 0.9 10*3/uL (1.3-4.4); MEAN CELL VOLUME 90.5 fl (80.0-94.0); MEAN CORPUSCULAR HGB 32.1 pg (27.0-31.0); MEAN CORPUSCULAR HGB CONC 35.5 g/dl (33.0-37.0); MEAN PLATELET VOLUME 10.7 fl (9.6-12.3); MONO # 1.2 10*3/uL (0.1-1.0); MONO % 12.2 % (3.0-9.0); NEUT # 6.9 10*3/uL (2.3-7.9); PLATELET COUNT AUTOMATED 92 10*3/uL (130-400); RED BLOOD COUNT 3.46 10*6/uL (4.50-5.90); RED CELL DISTRI WIDTH 17.5 % (0-14.5); WHITE BLOOD COUNT 9.4 10*3/uL (4.8-10.8)
[2022-04-15 06:30] LABS: SODIUM 119 mmol/L (136-145)
[2022-04-15 08:00] VITALS: BP 94/55
[2022-04-15 12:00] VITALS: BP 106/55
[2022-04-15 14:22] LABS: BUN 34 mg/dl (7-24); CHLORIDE 88 mmol/L (98-107); CREATININE 1.15 mg/dL (0.70-1.30); POTASSIUM 4.4 mmol/L (3.5-5.1); SODIUM 122 mmol/L (136-145)
[2022-04-15 16:00] VITALS: BP 101/57
[2022-04-15 18:06] LABS: BUN 33 mg/dl (7-24); CHLORIDE 89 mmol/L (98-107); CREATININE 1.11 mg/dL (0.70-1.30); POTASSIUM 4.6 mmol/L (3.5-5.1); SODIUM 120 mmol/L (136-145)
[2022-04-15 20:00] VITALS: BP 106/52
[2022-04-16] VITALS: BP 120/59
[2022-04-16 05:45] LABS: BUN 34 mg/dl (7-24); CHLORIDE 90 mmol/L (98-107); POTASSIUM 4.6 mmol/L (3.5-5.1); SODIUM 122 mmol/L (136-145)
[2022-04-16 05:46] LABS: CREATININE 1.09 mg/dL (0.70-1.30)
[2022-04-16 08:00] VITALS: BP 114/58
[2022-04-16 12:00] VITALS: BP 111/57
[2022-04-16 16:00] VITALS: BP 103/56
[2022-04-16 20:00] VITALS: BP 103/60
[2022-04-17] VITALS: BP 117/59
[2022-04-17 05:57] LABS: BUN 40 mg/dl (7-24); CHLORIDE 91 mmol/L (98-107); CREATININE 1.16 mg/dL (0.70-1.30); POTASSIUM 4.3 mmol/L (3.5-5.1); SODIUM 125 mmol/L (136-145)
[2022-04-17 06:04] LABS: BASO # 0.1 10*3/uL (0.0-0.1); BASO % 0.7 % (0.0-1.0); EOS # 0.2 10*3/uL (0.0-0.4); EOS % 2.3 % (1.0-4.0); HEMATOCRIT 31.8 % (42.0-52.0); LYMPH # 0.8 10*3/uL (1.3-4.4); LYMPH % 8.1 % (27.0-41.0); MEAN CELL VOLUME 91.4 fl (80.0-94.0); MEAN CORPUSCULAR HGB 32.5 pg (27.0-31.0); MEAN CORPUSCULAR HGB CONC 35.5 g/dl (33.0-37.0); MEAN PLATELET VOLUME 11.1 fl (9.6-12.3); MONO # 1.3 10*3/uL (0.1-1.0); MONO % 12.2 % (3.0-9.0); NEUT # 7.7 10*3/uL (2.3-7.9); NEUT % 74.7 % (47.0-73.0); PLATELET COUNT AUTOMATED 94 10*3/uL (130-400); RED BLOOD COUNT 3.48 10*6/uL (4.50-5.90); RED CELL DISTRI WIDTH 17.5 % (0-14.5); WHITE BLOOD COUNT 10.3 10*3/uL (4.8-10.8)
[2022-04-17 06:07] LABS: ACT PARTIAL THROMBO TIME 37.3 SECONDS (20.0-32.1); INTERNATIONAL NORM RATIO 1.8 (2.0-3.5)
[2022-04-17 08:00] VITALS: BP 100/53
[2022-04-17 12:00] VITALS: BP 101/64
[2022-04-17 16:00] VITALS: BP 106/59
[2022-04-17 20:00] VITALS: BP 106/54
[2022-04-18] VITALS: BP 110/60
[2022-04-18 06:35] LABS: BASO # 0.1 10*3/uL (0.0-0.1); BASO % 0.6 % (0.0-1.0); EOS # 0.2 10*3/uL (0.0-0.4); HEMATOCRIT 30.3 % (42.0-52.0); LYMPH # 0.9 10*3/uL (1.3-4.4); LYMPH % 8.4 % (27.0-41.0); MEAN CELL VOLUME 89.9 fl (80.0-94.0); MEAN CORPUSCULAR HGB CONC 35.6 g/dl (33.0-37.0); MEAN PLATELET VOLUME 10.1 fl (9.6-12.3); MONO # 1.3 10*3/uL (0.1-1.0); MONO % 11.7 % (3.0-9.0); NEUT # 8.2 10*3/uL (2.3-7.9); NEUT % 75.7 % (47.0-73.0); PLATELET COUNT AUTOMATED 95 10*3/uL (130-400); RED BLOOD COUNT 3.37 10*6/uL (4.50-5.90); RED CELL DISTRI WIDTH 17.2 % (0-14.5); WHITE BLOOD COUNT 10.8 10*3/uL (4.8-10.8)
[2022-04-18 06:44] LABS: ACT PARTIAL THROMBO TIME 37.6 SECONDS (20.0-32.1); INTERNATIONAL NORM RATIO 1.7 (2.0-3.5)
[2022-04-18 06:50] LABS: BUN 44 mg/dl (7-24); CHLORIDE 91 mmol/L (98-107); CREATININE 1.16 mg/dL (0.70-1.30); POTASSIUM 4.4 mmol/L (3.5-5.1); SODIUM 125 mmol/L (136-145)
[2022-04-18 08:00] VITALS: BP 103/59
[2022-04-18 12:00] VITALS: BP 104/53
[2022-04-18] MEDS ORDERED: SPIRONOLACTONE50 M1 PO (15:44)
[2022-04-18] MEDS ORDERED: Lasix80 MG PO (15:45)
[2022-04-18] MEDS ORDERED: SODIUM CHLORIDE1 GM PO (15:46)
[2022-04-18] MEDS ORDERED: OXYCONTIN10 M1 PO (15:47)
== END 2022-04-18 12:41 | disposition home health service (06) ==
LOC: ED 09:45 → 4E 12:29 → EDHOLD 12:29 → 5E 12:29 → 4E 13:21 → 5E 04-13 10:54
PROVIDERS: Family Medicine; Internal Medicine; Internal Medicine Nephrology; Registered Nurse; Student in an Organized Health Care Education/Training Program; ADMIT Emergency Medicine; ATTEND Emergency Medicine
PROC: 0W9G3ZZ Drainage of Peritoneal Cavity, Percutaneous Approach (ICD-10-PCS; principal; 2022-04-18)
DX: K74.60 Unspecified cirrhosis of liver (principal); E87.2 Acidosis; E43 Unspecified severe protein-calorie malnutrition; R18.8 Other ascites; I82.402 Acute embolism and thrombosis of unspecified deep veins of left lower extremity; E87.1 Hypo-osmolality and hyponatremia; D64.9 Anemia, unspecified; C22.9 Malignant neoplasm of liver, not specified as primary or secondary; I26.99 Other pulmonary embolism without acute cor pulmonale; I10 Essential (primary) hypertension; D69.6 Thrombocytopenia, unspecified; E87.8 Other disorders of electrolyte and fluid balance, not elsewhere classified; R73.9 Hyperglycemia, unspecified; R74.01 Elevation of levels of liver transaminase levels; R26.2 Difficulty in walking, not elsewhere classified; Z90.49 Acquired absence of other specified parts of digestive tract; Z85.6 Personal history of leukemia; Z86.718 Personal history of other venous thrombosis and embolism; Z85.05 Personal history of malignant neoplasm of liver; Z86.711 Personal history of pulmonary embolism; Z98.890 Other specified postprocedural states; Z68.37 Body mass index [BMI] 37.0-37.9, adult